=== PATIENT | female | born 1965 | race Caucasian/White ===

== ENCOUNTER 2019-05-16 15:49 | Inpatient (IN) | payer MEDICARE, OTHER ==
[~2019-05-16] VITALS: Ht 157.5 cm; Wt 103.9 kg
[2019-05-16] MEDS ORDERED: RISPERDAL (16:00)
--- NOTE | 2019-05-16 16:10 | NUR ---
PATIENT WAS SEEN BY . SHE ASKED FOR A SODA, I GAVE HER COLA. SHE IS AMBULATORY WITH STEADY GAIT.
[2019-05-16 16:17] LABS: BASOPHILS % (AUTO) 0.7 % (0.0-2.0); EOSINOPHILS # (AUTO) 0.2 K/uL (0.0-0.7); EOSINOPHILS % (AUTO) 3.5 % (0.0-7.0); HEMATOCRIT 36.3 % (31.2-41.9); LYMPHOCYTES # (AUTO) 2.3 K/uL (20.0-40.0); MEAN CORPUSCULAR HEMOGLOBIN 29.6 uug (24.7-32.8); MEAN CORPUSCULAR HGB CONC 33 g/dL (32.3-35.6); MEAN CORPUSCULAR VOLUME 89.2 fL (75.5-95.3); MONOCYTES # (AUTO) 0.4 K/uL (2.0-10.0); MONOCYTES % (AUTO) 5.5 % (0.0-11.0); NEUTROPHILS # (AUTO) 3.9 K/uL (1.8-8.9); NEUTROPHILS % (AUTO) 56.3 % (38.5-71.5); PLATELET COUNT (AUTO) 327 K/uL (179-408); RED BLOOD CELL COUNT(AUTO) 4.07 MIL/uL (3.63-4.92); WHITE BLOOD COUNT (AUTO) 6.8 K/uL (3.8-11.8)
[2019-05-16 16:22] LABS: CARBON DIOXIDE 27 mmol/L (21-32); CHLORIDE 106 mmol/L (98-107); CREATININE 0.6 mg/dL (0.6-1.3); GLUCOSE 131 mg/dL (74-106); POTASSIUM 4.4 mmol/L (3.5-5.1); UREA NITROGEN, BLOOD 7 mg/dL (7-18)
[2019-05-16 16:27] LABS: ALANINE AMINOTRANSFERASE 25 U/L (14-59); ALKALINE PHOSPHATASE 100 U/L (50-136); ASPARTATE AMINOTRANSFERASE 14 U/L (15-37); BILIRUBIN,DIRECT 0.1 mg/dL (0.0-0.2); BILIRUBIN,TOTAL 0.3 mg/dL (0.2-1.0); TOTAL PROTEIN, SERUM 7.2 g/dL (6.4-8.2)
--- NOTE | 2019-05-16 16:27 | NUR ---
URINE SENT TO LAB
[2019-05-16 16:28] LABS: ACETAMINOPHEN < 2.0 ug/mL (10-30)
[2019-05-16 16:33] LABS: *BILIRUBIN,URIN NEGATIVE (NEGATIVE); *BLOOD, URINE NEGATIVE (NEGATIVE); *CLARITY,URINE CLEAR (CLEAR); *COLOR,URINE YELLOW (YELLOW); *KETONES,URINE NEGATIVE (NEGATIVE); *UROBILINOGEN,URINE 0.2 E.U./dl (NORMAL); LEUKOCYTE ESTERASE ,URINE NEGATIVE (NEGATIVE); NITRITE, URINE NEGATIVE (NEGATIVE); UGLUCOSE NEGATIVE (NEGATIVE)
[2019-05-16 16:34] LABS: ETHANOL < 3 MG/DL (0-0)
[2019-05-16 16:46] LABS: *AMPHETAMINE, URINE NEGATIVE (NEGATIVE); *BARBITURATE, URINE NEGATIVE (NEGATIVE); *CANNABINOID, URINE NEGATIVE (NEGATIVE); *COCCAINE, URINE NEGATIVE (NEGATIVE); *OPIATE, URINE NEGATIVE (NEGATIVE); *PHENCYCLIDINE SCREEN,URINE NEGATIVE (NEGATIVE)
--- NOTE | 2019-05-16 17:48 | NUR ---
PATIENT DRANK COFFEE. SHE AMBULATED TO BATHROOM WITH STEADY GAIT. SHE IS AWARE OF PENDING ADMISSION TO HOSPITAL.
[2019-05-16] MEDS ORDERED: CEphaleXIN 500 MG CAPSULE PO ONE (18:15)
[2019-05-16] MEDS ORDERED: MAGNESIUM HYDROXIDE 30 ML LIQUID UDC PO PRN (18:45)
[2019-05-16] MEDS ORDERED: ACETAMINOPHEN 325 MG TABLET PO PRN (18:45)
[2019-05-16] MEDS ORDERED: LORAZEPAM 0.5 MG TABLET PO PRN (18:45)
[2019-05-16] MEDS ORDERED: TEMAZEPAM 7.5 MG CAPSULE PO PRN (18:45)
[2019-05-16] MEDS ORDERED: MAG HYDROX/AL HYDROX/SIMETH 30 ML LIQUID UDC PO PRN (18:45)
[2019-05-16] MEDS ORDERED: BLOOD SUGAR DIAGNOSTIC 1 EACH STRIP VI ONE (18:45)
[2019-05-16 21:12] VITALS: BP 139/73
[2019-05-16] MEDS: DOXYCYCLINE HYCLATE 100 MG TABLET PO SCH (21:19)
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
--- NOTE | 2019-05-17 05:58 | NUR ---
Patient slept 9 hours last night. Up only once to use bathroom. Patient up early and in day room.. No acute distress or issues during the night.
[2019-05-17 07:30] VITALS: BP 108/67
[2019-05-17] MEDS: DOXYCYCLINE HYCLATE 100 MG TABLET PO SCH (08:24)
[2019-05-17] MEDS ORDERED: LORAZEPAM 0.5 MG TABLET PO PRN (09:15)
[2019-05-17] MEDS ORDERED: LORAZEPAM 1 MG TABLET PO PRN (09:30)
[2019-05-17] MEDS: DIVALPROEX SPRINKLE 125 MG CAP.SPRINK PO SCH ×2 (09:49→20:26)
[2019-05-17] MEDS: risperiDONE 1 MG TABLET PO SCH ×2 (09:51→16:12)
--- NOTE | 2019-05-17 10:09 | NUR ---
Family Contact: SW contacted patients son Ronni, ([phone]) to gather more collateral in regards to patient. Patients son expressed patient does not have a POA or conservator at the moment but they are in the process. Patients son Ronni shared more contact information if needed to be reached, (patients brother Wade); ([phone]). Per Ronni, expressed that he is involved in pts care and would like patient to go to [facility] [[facility] ([phone]) where she resided at. SW informed her that pt wishes to be discharged back to her SNF and that pt agreed to the discharge planning.
--- NOTE | 2019-05-17 10:42 | NUR ---
called and left message to patients annie Rudolph , waiting for reply will call back again
--- NOTE | 2019-05-17 11:45 | NUR ---
Initial Discharge Plan: Pt resided at [facility] [address] [place] [address] ([phone]). Per pts sonRonni like pt to return to the facility and if not for SW to arrange pt to another facility. SW anyi work with the pt and the MD regarding appropriate discharge planning. SW will form a safe and proper discharge.
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
--- NOTE | 2019-05-17 14:34 | NUR ---
Social Work Note/Discharge Planning: industrial relations worker was notified by Don martel from [facility], ([phone]) he shared that patient was previously at [facility]. Patient was planned to be discharged to [facility] before she eloped from [facility]. Per Don, shared that patient will be accepted back to [facility].
--- NOTE | 2019-05-17 15:29 | NUR ---
called and spoke with DR. Gracia regarding the consult
[2019-05-17 16:31] VITALS: BP 93/53
[2019-05-17 19:59] VITALS: BP 110/40
[2019-05-17] MEDS: CEphaleXIN 500 MG CAPSULE PO SCH (20:26)
--- NOTE | 2019-05-17 22:05 | NUR ---
Received patient in bed, calm and cooperative, med compliant, no behavioral issue, will remain in a psych setting for further evaluation and treatment.
--- NOTE | 2019-05-18 06:29 | NUR ---
Patient slept for 7 hrs and 15 mins.
[2019-05-18 07:30] VITALS: BP 121/65
[2019-05-18] MEDS: CEphaleXIN 500 MG CAPSULE PO SCH ×2 (09:49→20:17)
[2019-05-18] MEDS: risperiDONE 1 MG TABLET PO SCH (09:49)
[2019-05-18] MEDS: DIVALPROEX SPRINKLE 125 MG CAP.SPRINK PO SCH ×2 (09:49→20:16)
[2019-05-18] MEDS ORDERED: OLANZAPINE 10 MG VIAL IM ONE (11:00)
--- NOTE | 2019-05-18 11:00 | NUR ---
Patient became aggressive with staff and dr. haney stating that she will call 911 on the staff and that she wants to get a gun and shoot all of us. Medication was ordered.
[2019-05-18 16:00] VITALS: BP 102/54
[2019-05-18] MEDS: risperiDONE 2 MG TABLET PO SCH (16:22)
[2019-05-18] MEDS ORDERED: risperiDONE 1 MG TABLET PO SCH (17:00)
[2019-05-18 20:18] VITALS: BP 94/43
--- NOTE | 2019-05-19 06:30 | NUR ---
PT SLEPT 9 H and 30 minutes. PT IN NO ACUTE DISTRESS. PRESCRIBED MEDICATION GIVEN AND PT TOLERATED IT WELL. SAFETY AND COMFORT PROVIDED. WILL CONTINUE TO MONITOR.
[2019-05-19 07:30] VITALS: BP 109/59
[2019-05-19] MEDS: CEphaleXIN 500 MG CAPSULE PO SCH ×2 (08:15→20:19)
[2019-05-19] MEDS: DIVALPROEX SPRINKLE 125 MG CAP.SPRINK PO SCH ×2 (08:15→20:19)
[2019-05-19] MEDS: risperiDONE 2 MG TABLET PO SCH ×2 (08:15→16:03)
--- NOTE | 2019-05-19 13:50 | NUR ---
Social work Note/Family contact: blade worker contacted patients sonRonni ([phone]) and left a voicemail to call back in regards to patients status/discharge plan.
[2019-05-19 16:00] VITALS: BP 101/57
[2019-05-19 21:21] VITALS: BP 118/67
--- NOTE | 2019-05-20 06:30 | NUR ---
Patient slept a total of 7.30 hours. Attended all needs. Ensured safety and comfort. Patient has been compliant with medications. No other untoward events noted. Will endorse accordingly.
[2019-05-20 07:30] VITALS: BP 105/50
[2019-05-20] MEDS: CEphaleXIN 500 MG CAPSULE PO SCH ×2 (08:39→20:14)
[2019-05-20] MEDS: risperiDONE 2 MG TABLET PO SCH ×2 (08:39→16:41)
[2019-05-20] MEDS: DIVALPROEX SPRINKLE 125 MG CAP.SPRINK PO SCH ×2 (08:39→20:14)
[2019-05-20 16:05] VITALS: BP 108/45
[2019-05-20 20:00] VITALS: BP 111/55
[2019-05-21 07:30] VITALS: BP 110/73
[2019-05-21] MEDS: risperiDONE 2 MG TABLET PO SCH ×2 (08:44→16:57)
[2019-05-21] MEDS: CEphaleXIN 500 MG CAPSULE PO SCH ×2 (08:44→20:16)
[2019-05-21] MEDS: DIVALPROEX SPRINKLE 125 MG CAP.SPRINK PO SCH ×2 (08:44→20:15)
[2019-05-21 16:05] VITALS: BP 121/69
[2019-05-21 20:30] VITALS: BP 116/61
[2019-05-22 07:30] VITALS: BP 98/45
[2019-05-22] MEDS: CEphaleXIN 500 MG CAPSULE PO SCH (08:20)
[2019-05-22] MEDS: risperiDONE 2 MG TABLET PO SCH ×2 (08:20→16:33)
[2019-05-22] MEDS: DIVALPROEX SPRINKLE 125 MG CAP.SPRINK PO SCH ×3 (08:20→16:33)
--- NOTE | 2019-05-22 11:44 | NUR ---
Social work Note/Family Contact: ornamental iron worker contacted patients annie Rudolph, ([phone]) and informed patients son discharge plan and treatment plan.
[2019-05-22 20:00] VITALS: BP 108/87
[2019-05-23 07:30] VITALS: BP 104/50
[2019-05-23] MEDS: risperiDONE 2 MG TABLET PO SCH ×2 (08:22→16:04)
[2019-05-23] MEDS: DIVALPROEX SPRINKLE 125 MG CAP.SPRINK PO SCH ×3 (08:22→16:04)
--- NOTE | 2019-05-23 11:57 | NUR ---
Social work note/Facility Contact: dimension mill worker contacted Keerthi from [facility] ([facility]), ([phone]) and shared that patient is welcomed back tomorrow. dimension mill worker sent clinicals to the facility.
[2019-05-23 16:30] VITALS: BP 123/72
[2019-05-23 20:00] VITALS: BP 97/57
--- NOTE | 2019-05-24 06:29 | NUR ---
Patient slept a total of 6.15 hours. Attended all needs. Ensured safety and comfort. No other untoward events noted. Will endorse accordingly.
[2019-05-24] MEDS: risperiDONE 2 MG TABLET PO SCH (08:02)
[2019-05-24] MEDS: DIVALPROEX SPRINKLE 125 MG CAP.SPRINK PO SCH ×2 (08:02→12:49)
[2019-05-24 08:03] VITALS: BP 103/65
--- NOTE | 2019-05-24 08:07 | NUR ---
Social Work Note/FIREARMS REPORT: Foster Care Social Worker completed and submitted a DPJ firearms report for 5250 grave disability certification. A copy of report has been placed in patient chart.
--- NOTE | 2019-05-24 08:17 | NUR ---
Social Work Note/DISCHARGE: Patient will be discharged to detention facility, [address] [address]; ) via Ambulance transportation. Please arrange Ambulance transportation for patient to be picked up at 1:00pm. Employee Health Rn spoke with Keerthi Pelletizer Operator at [facility]; ([phone]), who stated patient will be accepted back at facility today. Per patients annie Rudolph, ([phone]) has been made aware and agreeable with discharge plans. Patient is alert and oriented x2-3 and is unable to plan for self-care. Patient denies any suicidal or homicidal ideations. Patient is aware and agreeable with discharge plans. Patient will continue to follow-up with Psychiatrist and Cup Setter Lockstitch at [address] [address]; ) and will follow up to discuss smoking cessation and address substance abuse dependency. Patient was provided with mental health referrals to [facility] Crisis Line and the National Suicide Prevention Lifeline . Patient was provided with a brief substance abuse intervention and referred to [facility] , [facility] , and [facility] . Patient presents with euthymic and congruent mood. Addendum: 05/24/19 at 1341 by RAYMUNDO CORONA Social Work Note/DISCHARGE: Patient will be discharged to [facility], [address] [address]; ) via Ambulance transportation. Please arrange Ambulance transportation for patient to be picked up at 1:00pm. Employee Health Rn spoke with Pelletizer Operator at [facility]; ([phone]), who stated patient will be accepted back at facility today. Per patients son Ronni, ([phone]) has been made aware and agreeable with discharge plans. Patient is alert and oriented x2-3 and is unable to plan for self-care. Patient denies any suicidal or homicidal ideations. Patient is aware and agreeable with discharge plans. Patient will continue to follow-up with Cup Setter Lockstitch and psychiatrist at [facility] [address] [place] [address]; ) and will follow up to discuss smoking cessation and address substance abuse dependency. Patient was provided with mental health referrals to [facility] and the National Suicide Prevention Lifeline . Patient was provided with a brief substance abuse intervention and referred to [facility] , [facility] , and [facility] . Patient presents with euthymic and congruent mood.
--- NOTE | 2019-05-24 08:43 | NUR ---
Social Work Note/Family Contact: organic lab worker contacted patients annie Rudolph, ([phone]) and left a voicemail that patient will be discharged today at 1PM to [facility].
--- NOTE | 2019-05-24 11:52 | NUR ---
patient will be discharged to [facility] via ambulance, patient's vital sign stable,all personal belonging returned to patient. [facility].
--- NOTE | 2019-05-24 13:46 | NUR ---
nurse was told by social director patient will be transferred to [facility], report given to Whitney ADAME .
== END 2019-05-24 14:00 | DRG 885 ==
LOC: ER 15:53 → GPS 18:05
PROVIDERS: ADMIT Psychiatry & Neurology Psychiatry; ATTEND Nurse Practitioner Acute Care
DX: F20.0 Paranoid schizophrenia (principal); N39.0 Urinary tract infection, site not specified; Z68.41 Body mass index [BMI] 40.0-44.9, adult; E66.01 Morbid (severe) obesity due to excess calories; Z71.3 Dietary counseling and surveillance; Z59.0 Homelessness
CPT/HCPCS: 36415; 80164; 80307; 85025; A4663; G0480; G0480-TC; J2358

== ENCOUNTER 2019-06-09 22:00 | Inpatient (IN) | payer MEDICARE, OTHER ==
[~2019-06-09] VITALS: Ht 157.5 cm; Wt 107.0 kg
[2019-06-09] MEDS ORDERED: MAGN400O6 PO (22:24)
[2019-06-09] MEDS ORDERED: ACET325T53 PO (22:24)
[2019-06-09] MEDS ORDERED: DIVA250T PO (22:24)
[2019-06-09] MEDS ORDERED: RISP2TAB5 PO (22:24)
[2019-06-09] MEDS ORDERED: TEMA7.5C2 PO (22:24)
[2019-06-09] MEDS ORDERED: BISA10SU61 RC (22:24)
[2019-06-09] MEDS ORDERED: NA P133E RC (22:24)
[2019-06-09] MEDS ORDERED: LORA-259 PO (22:24)
--- NOTE | 2019-06-09 22:54 | NUR ---
PT IS ON 5150H +AGGRESSION AND NONCOMPLIANCE PT IS AOX1 WITH EPISODES OF CONFUSION, ABLE TO SPEAK CLEAR AND COMPLETE SENTENCES BROUGHT IN BY RESCUE FR KATHERINE CANALES [facility] PT IS AMBULATORY AND ABLE TO VOID PT COMPLIANT TO BASIC COMMANDS SUCH RECEIPT OF IM MEDS PT NOT IN APPARENT DISTRESS KEPT CALM AND COMFORTABLE
[2019-06-09] MEDS ORDERED: ZIPRASIDONE MESYLATE 20 MG VIAL IM ONE ×2 (23:00→23:16)
[2019-06-09 23:07] LABS: BASOPHILS # (AUTO) 0.1 K/uL (0.0-8.0); BASOPHILS % (AUTO) 0.8 % (0.0-2.0); EOSINOPHILS # (AUTO) 0.2 K/uL (0.0-0.7); EOSINOPHILS % (AUTO) 1.7 % (0.0-7.0); HEMATOCRIT 37.6 % (31.2-41.9); HEMOGLOBIN 12.8 g/dL (10.9-14.3); LYMPHOCYTES # (AUTO) 3.3 K/uL (20.0-40.0); LYMPHOCYTES % (AUTO) 38.3 % (20.5-51.5); MEAN CORPUSCULAR HEMOGLOBIN 29.6 uug (24.7-32.8); MEAN CORPUSCULAR HGB CONC 34 g/dL (32.3-35.6); MONOCYTES # (AUTO) 0.7 K/uL (2.0-10.0); MONOCYTES % (AUTO) 7.9 % (0.0-11.0); NEUTROPHILS # (AUTO) 4.5 K/uL (1.8-8.9); NEUTROPHILS % (AUTO) 51.3 % (38.5-71.5); PLATELET COUNT (AUTO) 342 K/uL (179-408); RED BLOOD CELL COUNT(AUTO) 4.33 MIL/uL (3.63-4.92); WHITE BLOOD COUNT (AUTO) 8.7 K/uL (3.8-11.8)
[2019-06-09 23:14] LABS: CARBON DIOXIDE 31 mmol/L (21-32); CHLORIDE 102 mmol/L (98-107); CREATININE 0.5 mg/dL (0.6-1.3); GLUCOSE 96 mg/dL (74-106); POTASSIUM 4.1 mmol/L (3.5-5.1); UREA NITROGEN, BLOOD 9 mg/dL (7-18)
[2019-06-09 23:20] LABS: ALANINE AMINOTRANSFERASE 17 U/L (14-59); ALKALINE PHOSPHATASE 95 U/L (50-136); ASPARTATE AMINOTRANSFERASE 10 U/L (15-37); BILIRUBIN,DIRECT 0.1 mg/dL (0.0-0.2); BILIRUBIN,TOTAL 0.2 mg/dL (0.2-1.0); CREATINE KINASE, TOTAL 81 U/L (26-192); TOTAL PROTEIN, SERUM 6.9 g/dL (6.4-8.2)
[2019-06-09 23:27] LABS: THYROID STIMULATING HORMONE 3.335 mIU/mL (0.358-3.740)
[2019-06-09 23:32] LABS: *BILIRUBIN,URIN NEGATIVE (NEGATIVE); *BLOOD, URINE NEGATIVE (NEGATIVE); *CLARITY,URINE CLEAR (CLEAR); *KETONES,URINE NEGATIVE (NEGATIVE); *UROBILINOGEN,URINE 0.2 E.U./dl (NORMAL); LEUKOCYTE ESTERASE ,URINE NEGATIVE (NEGATIVE); NITRITE, URINE NEGATIVE (NEGATIVE); UGLUCOSE NEGATIVE (NEGATIVE)
[2019-06-09 23:34] LABS: *COLOR,URINE STRAW (YELLOW)
[2019-06-09 23:35] LABS: ETHANOL < 3 MG/DL (0-0)
[2019-06-09 23:36] LABS: ACETAMINOPHEN < 2.0 ug/mL (10-30)
[2019-06-09 23:57] LABS: *AMPHETAMINE, URINE NEGATIVE (NEGATIVE); *BARBITURATE, URINE NEGATIVE (NEGATIVE); *CANNABINOID, URINE NEGATIVE (NEGATIVE); *COCCAINE, URINE NEGATIVE (NEGATIVE); *OPIATE, URINE NEGATIVE (NEGATIVE); *PHENCYCLIDINE SCREEN,URINE NEGATIVE (NEGATIVE)
--- NOTE | 2019-06-10 01:05 | NUR ---
PT IS ASLEEP BUT EASILY ROUSABLE NAD SIDERAILSX2 UP BED AT LOWEST POSITION
--- NOTE | 2019-06-10 01:29 | NUR ---
CALL FOR BED DONE PT STATES: "I DONT HAVE TO DO IT. IT'S OK, GIVE ME 2MINS" (REFERRING TO EKG) PT IS AWAKE, EYES KEPT SHUT BUT RESPONSIVE
[2019-06-10] MEDS ORDERED: ACETAMINOPHEN 325 MG TABLET PO PRN ×2 (01:30→02:45)
[2019-06-10] MEDS ORDERED: MAGNESIUM HYDROXIDE 30 ML LIQUID UDC PO PRN ×2 (01:30→02:45)
[2019-06-10] MEDS ORDERED: BLOOD SUGAR DIAGNOSTIC 1 EACH STRIP VI ONE ×2 (01:30→02:45)
[2019-06-10] MEDS ORDERED: LORAZEPAM 1 MG TABLET PO PRN (01:30)
[2019-06-10] MEDS ORDERED: MAG HYDROX/AL HYDROX/SIMETH 30 ML LIQUID UDC PO PRN ×2 (01:30→02:45)
[2019-06-10] MEDS ORDERED: TEMAZEPAM 7.5 MG CAPSULE PO PRN (01:30)
--- NOTE | 2019-06-10 01:36 | NUR ---
PT REFUSES TO COMPLY FOR THE THRID TIME WHEN ASKED FOR EKG STATES: "I REFUSE TO COOPERATE, I DO NOT WANT IT, I AM NOT A PART OF YOUR GOVERNMENT, YOU CAN SHOVE THEM UP YOUR ASS" ATTEMPTED TO REDIRECT AND REORIENT PT PT IS STILL ON 5150H ERMD AWARE WILL HOLD EKG FOR NOW
--- NOTE | 2019-06-10 01:49 | NUR ---
PT ABLE TO COMPLY WITH PROGRAM MANAGER ENVIRONMENTAL PLANNING FOR EKG HAND OFF AND SBAR GIVEN TO PATY ADAME PT WILL BE ADMITTED TO U 141B MEDICALLY CLEARED DX PSYCHOSIS/GD/5150 +AGGRESSION AND +NONCOMPLIANCE UNDER DR SANCHEZ/EYAD MANCINI
--- NOTE | 2019-06-10 02:45 | NUR ---
TRANSPORTED TO MHU PT ASLEEP BUT EASILY ROUSED
--- NOTE | 2019-06-10 03:30 | NUR ---
GPS/NSG ADMIT NOTE: Patient arrived to the unit asleep in [facility]. Patient observed to be asleep, able to offer a shower to which she disagreed, skin assessment performed however patient's level of orientation is to name and place. Patient was unable to participate in admission process, he presented disorganized with altered thought process. Although patient displayed poor insight and inability to respond at this time no behavior issues were noted. Admitted under the care of Dr. Stubbs and Dr. Garcia, both notified and aware patient is on a 5150 for grave disability. Patient rights hand book and advisement placed on bedside table. Plan for care initiated, will monitor for safety.
[2019-06-10 06:55] VITALS: BP 100/44
[2019-06-10 07:30] VITALS: BP 103/55
[2019-06-10] MEDS ORDERED: risperiDONE 0.5 MG TABLET PO SCH (14:30)
[2019-06-10] MEDS: BENZTROPINE MESYLATE 0.5 MG TABLET PO SCH ×2 (14:50→16:02)
[2019-06-10] MEDS: DIVALPROEX 250 MG TABLET.DR PO SCH ×2 (14:50→16:02)
[2019-06-10] MEDS: risperiDONE 1 MG TABLET PO SCH ×2 (14:50→20:03)
[2019-06-10 16:00] VITALS: BP 106/54
--- NOTE | 2019-06-10 17:41 | NUR ---
GPS: PATIENT PRESENTED TO BE DISORGANIZED IN HER ROOM, PATIENT TAKES MEDICATION, SEEN AND EXAMINE BY DR. HIGGINS, PATIENT REMAIN ISOLATIVE AND WITHDRAWN IN HER ROOM
[2019-06-10 20:32] VITALS: BP 108/68
--- NOTE | 2019-06-11 05:59 | NUR ---
Received Pt in bed sleeping, arouses easily. Pt irritable and angry upon waking. Pt refused assessments and refused HS PO meds. Pt yelled, "I'm not taking them because you are all intrusive and won't leave me alone. I don't need the meds." Pt remained uncooperative when re-approached again refused. Labile, Pt awoke this morning bright and cheerful. Shower given. VS stable, denied pain.
[2019-06-11] MEDS: BENZTROPINE MESYLATE 0.5 MG TABLET PO SCH ×3 (08:11→16:34)
[2019-06-11] MEDS: risperiDONE 1 MG TABLET PO SCH ×2 (08:11→21:00)
[2019-06-11] MEDS: DIVALPROEX 250 MG TABLET.DR PO SCH ×4 (08:11→16:34)
[2019-06-11] MEDS: TEMAZEPAM 7.5 MG CAPSULE PO PRN (22:23)
[2019-06-12] MEDS: LORAZEPAM 1 MG TABLET PO PRN ×2 (00:30→15:43)
[2019-06-12] MEDS: DIVALPROEX 250 MG TABLET.DR PO SCH ×3 (08:07→16:07)
[2019-06-12] MEDS: BENZTROPINE MESYLATE 0.5 MG TABLET PO SCH ×2 (08:07→16:08)
[2019-06-12] MEDS: risperiDONE 2 MG TABLET PO SCH ×2 (08:07→20:11)
[2019-06-12] MEDS ORDERED: risperiDONE 1 MG TABLET PO SCH (09:00)
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
[2019-06-12 15:29] VITALS: BP 113/68
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
--- NOTE | 2019-06-12 18:25 | NUR ---
PATIENT CALM WATCHING TV IN THE DINING ROOM
[2019-06-12 19:45] VITALS: BP 112/58
[2019-06-13] MEDS: DIVALPROEX 250 MG TABLET.DR PO SCH ×3 (08:19→16:12)
[2019-06-13] MEDS: BENZTROPINE MESYLATE 0.5 MG TABLET PO SCH ×2 (08:19→16:12)
[2019-06-13] MEDS: risperiDONE 2 MG TABLET PO SCH ×2 (08:19→20:05)
[2019-06-13] MEDS: LORAZEPAM 1 MG TABLET PO PRN ×2 (08:21→14:25)
--- NOTE | 2019-06-13 10:32 | NUR ---
Received patient yelling at staff, threatening , posturing and slamming doors. Multiple attempts made to redirect and calm patient down with no effect on the situation. As patients behavior kept escalating, call placed to DR Stubbs and orders received for a Zyprexa 10 mg IM injection. Patient tolerated shot well and seemed to calm down almost right away. Respiratory rate remained WNL, even and unlabored. Patient monitored closely for an hour. No acute distress noted as patient was up in day room eating snack and watching TV. Continuing to monitor patient for any further episodes or escalation of inappropriate behavior. None noted at this time.
--- NOTE | 2019-06-13 15:43 | NUR ---
Social Work Note/Family Contact: steam trap worker contacted patients annie Rudolph ([phone]) and left voicemail in regard to patients treatment plan and discharge plan.
[2019-06-13] MEDS ORDERED: OLANZAPINE 10 MG VIAL IM STA (19:10)
[2019-06-14] MEDS: TEMAZEPAM 7.5 MG CAPSULE PO PRN (01:17)
--- NOTE | 2019-06-14 06:06 | NUR ---
Patient slept on and off for 7 hours last night. Up a couple of times during the night for food. Patient needed sleeping medication also. No issues so far this am with behavior, continuing to monitor closely.
[2019-06-14] MEDS: risperiDONE 2 MG TABLET PO SCH ×3 (08:10→20:13)
[2019-06-14] MEDS: DIVALPROEX 250 MG TABLET.DR PO SCH ×3 (08:10→16:04)
[2019-06-14] MEDS: BENZTROPINE MESYLATE 0.5 MG TABLET PO SCH (08:10)
[2019-06-14] MEDS: LORAZEPAM 1 MG TABLET PO PRN (08:10)
[2019-06-14] MEDS ORDERED: BENZTROPINE MESYLATE 0.5 MG TABLET PO PRN (08:30)
--- NOTE | 2019-06-14 08:43 | NUR ---
Social Work Note/Coordination of Care: abrasive worker contacted Janine ([phone]) and faxed patients progress note and [facility]. Per Janine, she will contact social media intern in regard to see if patient is welcomed to the facility.
--- NOTE | 2019-06-14 13:18 | NUR ---
Social Work Note/Family Contact: automotive worker contacted patients annie Rudolph ([phone]) and reported patients treatment plan and discharge plan.
--- NOTE | 2019-06-14 13:19 | NUR ---
Social Work Note/PC Hearing Notification: social worker masters contacted patients son Ronni ([phone]) and notified patients probable cause of hearing today.
[2019-06-14 16:00] VITALS: BP 106/62
[2019-06-14 20:19] VITALS: BP 118/69
[2019-06-15] MEDS: risperiDONE 2 MG TABLET PO SCH ×2 (08:31→20:16)
[2019-06-15] MEDS: DIVALPROEX 250 MG TABLET.DR PO SCH ×4 (08:31→20:15)
--- NOTE | 2019-06-15 13:12 | NUR ---
Pt assessed, AOx3, compliant with medications and able to make needs known. Pt denies SI, AH/VH. When asked about what events lead up to her arrival here, Pt became irritable describing other's aggressive behavior towards her, liable mood, flight of ideas, disorganized thought process. Denies feelings of HI/SI/AH/VH, goal oriented on placement. No combative behavior noted. Pt ambulates steadily. All comfort measures in place. Will continue to monitor for safety.
--- NOTE | 2019-06-15 15:35 | NUR ---
Social Work Note/Coordination of Care: Janine From [facility] ([phone]) visited patient to do a evaluation. Per Janine, she expressed that patient is welcomed upon discharge.
[2019-06-15 20:00] VITALS: BP 121/58
[2019-06-16 08:00] VITALS: BP 117/64
[2019-06-16] MEDS: risperiDONE 2 MG TABLET PO SCH ×3 (08:42→20:04)
[2019-06-16] MEDS: DIVALPROEX 250 MG TABLET.DR PO SCH ×5 (08:42→20:04)
[2019-06-16 16:00] VITALS: BP 124/76
[2019-06-16 20:00] VITALS: BP 111/60
[2019-06-17] MEDS: LORAZEPAM 1 MG TABLET PO PRN (05:26)
--- NOTE | 2019-06-17 05:39 | NUR ---
Patient slept 8.15 hours last night. Woke up feeling anxious this am, Ativan given and patient back to bed. No acute distress noted, continuing to monitor for safety.
[2019-06-17 07:30] VITALS: BP 129/66
[2019-06-17] MEDS: risperiDONE 2 MG TABLET PO SCH ×2 (08:00→20:01)
[2019-06-17] MEDS: DIVALPROEX 250 MG TABLET.DR PO SCH ×4 (08:00→20:01)
[2019-06-17 20:00] VITALS: BP 116/61
[2019-06-18] MEDS: DIVALPROEX 250 MG TABLET.DR PO SCH ×4 (08:52→20:20)
[2019-06-18] MEDS: risperiDONE 2 MG TABLET PO SCH ×2 (08:52→20:20)
[2019-06-18 16:00] VITALS: BP 118/50
[2019-06-18 19:45] VITALS: BP 131/52
[2019-06-18] MEDS: LORAZEPAM 1 MG TABLET PO PRN (21:21)
[2019-06-19 08:45] VITALS: BP 105/49
[2019-06-19] MEDS: DIVALPROEX 250 MG TABLET.DR PO SCH ×6 (08:53→20:39)
[2019-06-19] MEDS: risperiDONE 2 MG TABLET PO SCH ×3 (08:54→20:39)
--- NOTE | 2019-06-19 10:50 | NUR ---
Social Work Note/Discharge Update: oven worker faxed Janine admin coordinator from [place] (P:[phone]) (F:[phone]) patients progress notes and [facility] psychiatric notes.
--- NOTE | 2019-06-19 10:55 | NUR ---
Social Work Note/Family Contact: social contact worker contacted patients annie Rudolph ([phone]) and left a voicemail in regard to patients treatment plan and discharge plan.
--- NOTE | 2019-06-19 14:46 | NUR ---
Social Work Note/Individual Therapy: utility worker woolen mill met with patient and she became verbally abusive. Patient is irritable and paranoid.
--- NOTE | 2019-06-19 15:55 | NUR ---
transfer care to new Rn report given
[2019-06-19 20:23] VITALS: BP 113/59
[2019-06-20 07:30] VITALS: BP 110/63
[2019-06-20] MEDS: risperiDONE 2 MG TABLET PO SCH ×2 (08:19→21:08)
[2019-06-20] MEDS: DIVALPROEX 250 MG TABLET.DR PO SCH (08:19)
[2019-06-20] MEDS ORDERED: VALPROIC ACID 250 MG/5 ML LIQUID UDC PO SCH (09:00)
[2019-06-20 10:43] LABS: *BILIRUBIN,URIN NEGATIVE (NEGATIVE); *BLOOD, URINE NEGATIVE (NEGATIVE); *CLARITY,URINE CLEAR (CLEAR); *COLOR,URINE YELLOW (YELLOW); *KETONES,URINE TRACE (NEGATIVE); *UROBILINOGEN,URINE 0.2 E.U./dl (NORMAL); LEUKOCYTE ESTERASE ,URINE NEGATIVE (NEGATIVE); NITRITE, URINE NEGATIVE (NEGATIVE); UGLUCOSE NEGATIVE (NEGATIVE)
[2019-06-20 10:49] LABS: SQUAMOUS EPITHELIAL CELL,UR FEW /HPF (NONE SEEN)
[2019-06-20 10:50] LABS: BACTERIA,URINE FEW /HPF (NONE SEEN); RBC,URINE 0-3 /HPF (0-3); WBC,URINE 0-3 /HPF (0-3)
[2019-06-20] MEDS: VALPROIC ACID 250 MG/5 ML LIQUID UDC PO SCH ×3 (12:01→21:08)
[2019-06-20 16:04] VITALS: BP 98/65
--- NOTE | 2019-06-20 18:10 | NUR ---
GPS: received patient AOx1, patient calm cooperative, compliant with medication, patient gets easily irritable however able to direct seen by Dr. Stubbs , no distress at this time , will continue monitor
[2019-06-20 20:00] VITALS: BP 128/53
[2019-06-21 07:30] VITALS: BP 104/59
[2019-06-21] MEDS: VALPROIC ACID 250 MG/5 ML LIQUID UDC PO SCH ×4 (09:48→20:02)
[2019-06-21] MEDS: risperiDONE 2 MG TABLET PO SCH ×2 (09:49→20:02)
[2019-06-21 16:00] VITALS: BP 104/64
[2019-06-21 20:22] VITALS: BP 128/74
[2019-06-21] MEDS: TEMAZEPAM 7.5 MG CAPSULE PO PRN (23:15)
--- NOTE | 2019-06-22 05:53 | NUR ---
Patient slept 6.45 hours. Plan for patient to be dc,d today. No issues last night.
--- NOTE | 2019-06-22 07:57 | NUR ---
Social Work Note/Discharge Note: Patient will be discharged to a locked [facility] facility to [facility] [address] [place] [address] ; ([phone]) via Ambulance transportation at 12PM. Electronics Assembler And Tester spoke with Janine, Cash Management Associate [facility]; ([phone]), who stated patient will be accepted at facility today. Patient is alert and oriented x2-3, and is not able to plan for self-care at this time, but is willing to accept care provided for her at the facility. Patient denies any suicidal or homicidal ideations. Patient is aware and agreeable with discharge plans. Patients son Ronni, ([phone]) is aware and agreeable with discharge plans. Patient will continue to follow-up with her Psychiatrist Dr. Stubbs and Cover Maker Dr. Caba at [facility] [address] [place] [address] ; ([phone]). Patient will follow-up at the center. Patient presents with euthymic mood and congruent affect.
[2019-06-22 07:58] VITALS: BP 107/63
--- NOTE | 2019-06-22 07:59 | NUR ---
Social Work Note/Firearms Report: Teacher Home Therapy completed and submitted a [employer] firearms report for 5250 grave disability certification. A copy of report has been placed in patient chart.
--- NOTE | 2019-06-22 08:03 | NUR ---
Social Work Note/Family Contact: curb worker contacted patients annie Rudolph ([phone]) and left a voicemail in regard to patients treatment plan and discharge plan.
[2019-06-22] MEDS: VALPROIC ACID 250 MG/5 ML LIQUID UDC PO SCH ×2 (08:55→12:12)
[2019-06-22] MEDS: risperiDONE 2 MG TABLET PO SCH (08:55)
--- NOTE | 2019-06-22 10:58 | NUR ---
Gps/Equipment Maint Tech- Had been compliant with routine am meds. had been redirectable, ate breakfast in the dinning room, Discharged planning in progress , patient was well informed.
--- NOTE | 2019-06-22 13:02 | NUR ---
Gps/Attendant Coin Operated Laundry- [facility] report was given to DEEP Lopez.was also informed of cook pickled meat time @ 1330.Patient was well informed of her discharge plan.
--- NOTE | 2019-06-22 14:07 | NUR ---
Gps/Billing Specialist- Discharged via ambulance, in good spirit, No new complaints noted , all belongings given back to patient.
== END 2019-06-22 14:13 | DRG 885 ==
LOC: ER 22:02 → GPS 06-10 02:06
PROVIDERS: ADMIT Psychiatry & Neurology Psychiatry; ATTEND Internal Medicine
DX: F20.0 Paranoid schizophrenia (principal); Z68.41 Body mass index [BMI] 40.0-44.9, adult; E66.01 Morbid (severe) obesity due to excess calories
CPT/HCPCS: 36415; 80164; 80307; 84443; 85025; 93005; A4663; G0480; G0480-TC; J2358; J3486; J3490

== ENCOUNTER 2020-11-23 19:02 | Inpatient (IN) | payer MEDICARE, OTHER ==
[~2020-11-23] VITALS: Ht 157.5 cm; Wt 108.9 kg
[~2020-11-23 19:02] MED LIST: ACET325T53 PO; BISA10SU61 RC; MAGN400O6 PO; NA P133E RC
[2020-11-23] MEDS ORDERED: LITH300C2 PO (19:32)
[2020-11-23] MEDS ORDERED: OLAN10TA3 PO (19:32)
[2020-11-23] MEDS ORDERED: GABA-532 PO (19:32)
[2020-11-23 19:54] LABS: BASOPHILS # (AUTO) 0.1 K/uL (0.0-8.0); BASOPHILS % (AUTO) 0.8 % (0.0-2.0); EOSINOPHILS # (AUTO) 0.3 K/uL (0.0-0.7); EOSINOPHILS % (AUTO) 3.1 % (0.0-7.0); HEMOGLOBIN 11.7 g/dL (10.9-14.3); LYMPHOCYTES # (AUTO) 3.6 K/uL (20.0-40.0); LYMPHOCYTES % (AUTO) 33.6 % (20.5-51.5); MEAN CORPUSCULAR HEMOGLOBIN 28.8 uug (24.7-32.8); MEAN CORPUSCULAR HGB CONC 33 g/dL (32.3-35.6); MEAN CORPUSCULAR VOLUME 88.6 fL (75.5-95.3); MONOCYTES # (AUTO) 0.6 K/uL (2.0-10.0); MONOCYTES % (AUTO) 5.5 % (0.0-11.0); PLATELET COUNT (AUTO) 389 K/uL (179-408); RED BLOOD CELL COUNT(AUTO) 4.06 MIL/uL (3.63-4.92); WHITE BLOOD COUNT (AUTO) 10.6 K/uL (3.8-11.8)
[2020-11-23 20:01] LABS: CARBON DIOXIDE 27 mmol/L (21-32); CHLORIDE 106 mmol/L (98-107); CREATININE 0.7 mg/dL (0.6-1.3); ETHANOL < 3 MG/DL (0-0); GLUCOSE 127 mg/dL (74-106); POTASSIUM 4.1 mmol/L (3.5-5.1); UREA NITROGEN, BLOOD 19 mg/dL (7-18)
[2020-11-23 20:08] LABS: ALANINE AMINOTRANSFERASE 18 U/L (14-59); ALKALINE PHOSPHATASE 96 U/L (50-136); ASPARTATE AMINOTRANSFERASE 11 U/L (15-37); BILIRUBIN,DIRECT 0.1 mg/dL (0.0-0.2); BILIRUBIN,TOTAL 0.1 mg/dL (0.2-1.0); TOTAL PROTEIN, SERUM 6.4 g/dL (6.4-8.2)
[2020-11-23 20:12] LABS: ACETAMINOPHEN < 2.0 ug/mL (10-30)
[2020-11-23 20:14] LABS: THYROID STIMULATING HORMONE 3.066 mIU/mL (0.358-3.740)
[2020-11-23 20:18] LABS: *BILIRUBIN,URIN NEGATIVE (NEGATIVE); *BLOOD, URINE NEGATIVE (NEGATIVE); *CLARITY,URINE CLEAR (CLEAR); *COLOR,URINE YELLOW (YELLOW); *KETONES,URINE NEGATIVE (NEGATIVE); *UROBILINOGEN,URINE 0.2 E.U./dl (NORMAL); LEUKOCYTE ESTERASE ,URINE NEGATIVE (NEGATIVE); NITRITE, URINE NEGATIVE (NEGATIVE); PH,URINE 6.5 (5.0-8.0); UGLUCOSE NEGATIVE (NEGATIVE)
[2020-11-23] MEDS ORDERED: RISP4TAB70 PO (20:23)
[2020-11-23 20:29] LABS: *AMPHETAMINE, URINE NEGATIVE (NEGATIVE); *CANNABINOID, URINE NEGATIVE (NEGATIVE); *COCCAINE, URINE NEGATIVE (NEGATIVE); *OPIATE, URINE NEGATIVE (NEGATIVE); *PHENCYCLIDINE SCREEN,URINE NEGATIVE (NEGATIVE)
--- NOTE | 2020-11-23 20:30 | NUR ---
PATIENT ABLE TO AMBULATED TO RESTROOM WITH STEADY GAIT. PATIENT CALM AND COOPERATIVE AT THIS TIME.
--- NOTE | 2020-11-23 21:15 | NUR ---
TRANSFERED TO MHU VIA GURNY WITH NO DISTRESS NOTED.
[2020-11-23] MEDS ORDERED: MAGNESIUM HYDROXIDE 30 ML LIQUID UDC PO PRN (21:30)
[2020-11-23] MEDS ORDERED: MAG HYDROX/AL HYDROX/SIMETH 30 ML LIQUID UDC PO PRN (21:30)
[2020-11-23] MEDS ORDERED: ACETAMINOPHEN 325 MG TABLET PO PRN (21:30)
[2020-11-23] MEDS ORDERED: BLOOD SUGAR DIAGNOSTIC 1 EACH STRIP VI ONE (21:30)
[2020-11-23 21:34] VITALS: BP 110/68
[2020-11-23] MEDS: TEMAZEPAM 7.5 MG CAPSULE PO PRN ×2 (21:51→22:56)
--- NOTE | 2020-11-23 22:30 | NUR ---
Admission Note: 55 y.o. female brought to MHU from ER via gurney accompanied by ER staff. Pt admitted on a 5150 for DTO under the care of Dr Calle and Dr Workman with a dx of Psychosis. According to the 5150, Pt was at [facility] in [place] and was psychotic, cursing at, and threatening staff. She was talking about the governors brother is a in store representative and the lesbians are the enemies. Upon face to face evaluation, Pt is A+Ox2 with poor insight into reason for admission. Affect is elevated, mood is labile and angry. Pt presents with altered, disorganized thought process. Exhibits pressured, rambling speech and paranoid ideations. Pt was angry and agitated on approach, and uncooperative with the assessment, but was tentatively able to contract for safety. Pt refused to answer most questions and became more and angrier as questions were asked, and yelled at another staff member, "You're the reason they are killing all the Jews!", Pt was redirected and reoriented to reality. Pt is delusional and made multiple non-sensical statements, Im here because the [place] killed my family and Im the only one left on earth and The government has infiltrated my veins and created a network so they can follow me. Pt is impulsive, unpredictable, easily irritated, and preoccupied. Pt was uncooperative with admission process and refused to sign paperwork, and unwilling to participate in admission process. Restoril 7.5mg administered for restlessness and insomnia with good effect. Pt initially refused body check, but was more cooperative after a snack was given. Skin noted to be intact with large vertical surgical scar noted to the mid abdomen. Possible hernia noted to (L) lower abdomen, Pt refused photos. Pt is a poor historian and unable to state what the surgical scar is from. Pt has a known medical h/o schizophrenia, obesity, and HTN. Allergies to Haldol, Ibuprofen, and morphine. Dr Calle and Dr Workman notified of admission, orders received, meds reconciled. Pt did not give permission to notify anyone, and states all of my family is . Will refer to Head Of Global Strategic Partnerships for follow up for collateral information. Belongings inventoried and placed in unit locker, medications sent to pharmacy. Pt educated regarding unit rules and expectations. Patient rights explained, Advisement and patient rights handbook given, Pt will need reinforcement due to agitation. Pt oriented to the unit, the phones, her room, and the bathroom. VS stable, Pt denied pain. Q 15 minute safety checks initiated.
[2020-11-24] MEDS ORDERED: OLANZAPINE 10 MG VIAL IM ONE (11:15)
--- NOTE | 2020-11-24 11:15 | NUR ---
GPS: Nursing Notes: Chemical Restraint: Patient is awake and shouting to psychiatrist, threatening her, interfering with the care of her roommate, shouting "LEAVE HER ALONE... GET AWAY FROM HER...", violating the psychiatrist's personal space, overly disruptive by shouting, screaming to staff and peers, redirected by unable to follow directions, poor anger management, not allowing for the psychiatrist to talk the patient, paranoid and restless behavior, Dr. Calle ordered: Zyprexa 10mg IM stat, for severe agitated behavior, R=18, medication IM given at this time, continue to monitor for safety, continue with treatment plan.
--- NOTE | 2020-11-24 11:45 | NUR ---
GPS: Nursing Notes: Reassessment of Chemical Restraint: Patient is awake and responding to her name, isolative in her room, gets easily irritable when redirected, patient is withdrawn in her room, medications IM was effective, continue to monitor for safety, R=18, continue with treatment plan.
[2020-11-24 15:09] VITALS: BP 96/49
[2020-11-24] MEDS: OLANZAPINE 5 MG TABLET PO SCH ×2 (17:45→22:00)
[2020-11-24] MEDS: LITHIUM CARBONATE 300 MG CAPSULE PO SCH (17:46)
--- NOTE | 2020-11-24 22:00 | NUR ---
Pt agitated and elevated at the beginning of the shift. Pt offered prn Ativan, which she declined. Verbal redirection given and Pt calmed, then went to sleep. Pt refused scheduled Zyprexa. Education regarding risks and benefits of medications, Pt not receptive.
[2020-11-24] MEDS: LORAZEPAM 1 MG TABLET PO PRN (22:31)
--- NOTE | 2020-11-25 06:36 | NUR ---
Pt is delusional and psychotic. States she is "" and refuses to take medications because "It's bad" for her baby. Pt later stated that her stomach hurt "Because you force fed me chocolate pudding and not vanilla. That is going to kill me." Pt actively responds to internal stimuli. appears preoccupied and hypervigilant, and presents with altered and disorganized thought process. Pt is selectively cooperative with care and non compliant with meds this shift. Refused VS, denied pain.
[2020-11-25 07:30] VITALS: BP 119/65
[2020-11-25] MEDS: OLANZAPINE 5 MG TABLET PO SCH ×2 (08:32→17:09)
[2020-11-25] MEDS: LITHIUM CARBONATE 300 MG CAPSULE PO SCH ×3 (08:32→17:09)
[2020-11-25 20:15] VITALS: BP 116/62
[2020-11-25] MEDS: OLANZAPINE 2.5 MG TABLET PO SCH (20:26)
[2020-11-26 07:30] VITALS: BP 110/46
[2020-11-26] MEDS: LITHIUM CARBONATE 300 MG CAPSULE PO SCH ×3 (08:13→17:13)
[2020-11-26] MEDS: OLANZAPINE 5 MG TABLET PO SCH ×2 (08:13→17:13)
--- NOTE | 2020-11-26 09:13 | NUR ---
Firearms Report: Architectural Modeler completed and submitted a [employer] firearms report for 5150 grave disability certification. A copy of report has been placed in patient chart.
--- NOTE | 2020-11-26 09:54 | NUR ---
Initial Discharge Plan: Patient will need a nursing facility. This SW contacted patient's son Ronni ([phone]) to discuss treatment and discharge plan, however, was unavailable at this time. This SW will work with the MD, treatment team, and family to help coordinate proper discharge.
--- NOTE | 2020-11-26 09:55 | NUR ---
Family Contact: This SW contacted patient's son Ronni ([phone]) to discuss treatment and discharge plan, however, was unavailable at this time.
--- NOTE | 2020-11-26 10:10 | NUR ---
SW Facility Contact: SW received a call from Dancia WEST ([phone]) from [address] [place] [address] [phone]) who stated that they will accept the patient back to their facility upon discharge.
--- NOTE | 2020-11-26 11:33 | NUR ---
SW Substance Abuse Intervention: Patient was provided with a brief substance abuse intervention and referred to [facility] ([phone]), [facility] ([phone]), and [facility] ([phone]) for smoking.
--- NOTE | 2020-11-26 13:49 | NUR ---
RAYMUNDO Individual Therapy: composition siding worker met with patient for brief counseling to help address patients presenting problem paranoid thought content. Patient appeared very paranoid and delusional. Patient appeared manic and labile. Patient stating that she was forced to be brought to the hospital. Patient appeared hyperverbal and angry. Patient unable to have a proper conversation at this time due to her paranoia. SW unable to conduct therapy at this time.
--- NOTE | 2020-11-26 14:57 | NUR ---
Treatment Plan: Patient refused to sign her treatment plan due to being agitated and paranoid.
[2020-11-26 16:03] VITALS: BP 115/65
[2020-11-26] MEDS: OLANZAPINE 2.5 MG TABLET PO SCH (20:03)
[2020-11-26 20:07] VITALS: BP 106/51
[2020-11-27 07:30] VITALS: BP 115/67
--- NOTE | 2020-11-27 07:30 | NUR ---
Received report from RICO Robles. All questions, comments, and concerns were addressed. Received patient resting quietly and comfortably in her assigned bed. Bed is in low and locked position.
[2020-11-27] MEDS: LITHIUM CARBONATE 300 MG CAPSULE PO SCH ×3 (08:36→16:05)
[2020-11-27] MEDS: OLANZAPINE 5 MG TABLET PO SCH ×2 (08:36→16:05)
--- NOTE | 2020-11-27 11:39 | NUR ---
SW Facility Contact: SW received a call from Danica WEST ([phone]) from [address] [place] [address] ([phone]) who stated that patient would have to return back upon discharge because she was mandated by the court to complete her hours.
[2020-11-27 16:04] VITALS: BP 97/37
[2020-11-27 20:06] VITALS: BP 97/50
[2020-11-27] MEDS: OLANZAPINE 2.5 MG TABLET PO SCH (20:07)
[2020-11-28 07:30] VITALS: BP 97/45
[2020-11-28] MEDS: LITHIUM CARBONATE 300 MG CAPSULE PO SCH ×3 (08:39→16:20)
[2020-11-28] MEDS: OLANZAPINE 5 MG TABLET PO SCH ×2 (08:39→16:20)
--- NOTE | 2020-11-28 11:13 | NUR ---
RAYMUNDO Facility Contact: RAYMUNDO contacted Danica WEST ([phone]) from [facility] and stated that pt is ready for discharge next week. She stated pt is welcomed back. Addendum: 11/28/20 at 1117 by RAYMUNDO CORONA Danica confirmed address [facility] [address] [facility] [address].
--- NOTE | 2020-11-28 12:44 | NUR ---
Gps/Film Tests Checker- Had been quiet, guarded, compliant with her routine am meds., encouraged verbalizations of her feelings needs. Refused to attend her group therapy.
[2020-11-28 16:00] VITALS: BP_SYST 114; BP_SYST 129; BP_DIAS 52; BP_DIAS 77
--- NOTE | 2020-11-28 19:30 | NUR ---
PATIENT IN HER ROOM ASLEEP BUT AROUSABLE, PATIENT HAS NO COMPLAIN OF PAIN, COOPERATIVE WITH CARE AND MEDICATIONS. PATIENT CALM CONT TO MONITOR.
[2020-11-28 20:16] VITALS: BP 112/51
[2020-11-28] MEDS: OLANZAPINE 2.5 MG TABLET PO SCH (20:51)
--- NOTE | 2020-11-29 05:25 | NUR ---
PATIENT SLEPT WELL, CALM AND COOPERATIVE WITH CARE AND MEDICATIONS.
[2020-11-29] MEDS: LITHIUM CARBONATE 300 MG CAPSULE PO SCH ×3 (08:40→16:51)
[2020-11-29] MEDS: OLANZAPINE 5 MG TABLET PO SCH ×2 (08:40→16:51)
--- NOTE | 2020-11-29 11:21 | NUR ---
RAYMUNDO Facility Contact: RAYMUNDO contacted Danica WEST ([phone]) from [facility] and left a voicemail that discharge will be post-poned.
--- NOTE | 2020-11-29 14:30 | NUR ---
Gps/Clerical Administrator- Stayed in her room most of the time, comes out when needed simple needs. Encouraged going to activity room during the day . Encouraged verbalizations of her feelings , stares and does not respond at times.
--- NOTE | 2020-11-29 15:15 | NUR ---
Court Hearing: Patient's court hearing for 5250 was today and it was upheld for danger to others.
[2020-11-29 17:44] VITALS: BP 104/54
[2020-11-29 20:12] VITALS: BP 94/69
[2020-11-29] MEDS: OLANZAPINE 2.5 MG TABLET PO SCH (22:17)
--- NOTE | 2020-11-30 05:24 | NUR ---
PATIENT STAYED IN HER ROOM, AMBULATE TO BATHROOM. PATIENT HAS EPISODE OF DELUSION OF THE HOSPITAL IS SELL HER INSURANCE TO OTHER PEOPLE. PATIENT CALM AND COOPERATIVE WITH MEDICATION AND CARE AT THIS TIME. CONT TO MONITOR.
[2020-11-30 08:10] VITALS: BP 106/58
[2020-11-30] MEDS: OLANZAPINE 5 MG TABLET PO SCH ×2 (08:16→16:30)
[2020-11-30] MEDS: LITHIUM CARBONATE 300 MG CAPSULE PO SCH ×3 (08:16→16:30)
[2020-11-30 17:01] VITALS: BP 114/59
[2020-11-30] MEDS: OLANZAPINE 2.5 MG TABLET PO SCH (19:55)
[2020-11-30] MEDS: LORAZEPAM 1 MG TABLET PO PRN (19:55)
[2020-11-30 21:47] VITALS: BP 106/55
[2020-12-01] MEDS: LORAZEPAM 1 MG TABLET PO PRN ×2 (03:13→20:38)
--- NOTE | 2020-12-01 06:33 | NUR ---
Patient slept 6.45 hours last night. Up a couple times due to the roommate being loud and inconsiderate. Patient appeared to be anxious and angry on and off , but easily redirectable. Patient denies SI and HI but is responding to internal stimuli. Monitoring for behavior escalation and safety.
[2020-12-01 07:30] VITALS: BP 130/66
[2020-12-01] MEDS: OLANZAPINE 5 MG TABLET PO SCH ×2 (08:58→16:19)
[2020-12-01] MEDS: LITHIUM CARBONATE 300 MG CAPSULE PO SCH ×3 (08:58→16:19)
[2020-12-01 14:05] LABS: BASOPHILS # (AUTO) 0.1 K/uL (0.0-8.0); EOSINOPHILS # (AUTO) 0.3 K/uL (0.0-0.7); EOSINOPHILS % (AUTO) 3.1 % (0.0-7.0); HEMOGLOBIN 12.5 g/dL (10.9-14.3); LYMPHOCYTES # (AUTO) 2.7 K/uL (20.0-40.0); LYMPHOCYTES % (AUTO) 33.4 % (20.5-51.5); MEAN CORPUSCULAR HGB CONC 33 g/dL (32.3-35.6); MEAN CORPUSCULAR VOLUME 87.8 fL (75.5-95.3); MONOCYTES # (AUTO) 0.4 K/uL (2.0-10.0); MONOCYTES % (AUTO) 5.6 % (0.0-11.0); NEUTROPHILS # (AUTO) 4.5 K/uL (1.8-8.9); NEUTROPHILS % (AUTO) 56.9 % (38.5-71.5); PLATELET COUNT (AUTO) 346 K/uL (179-408); RED BLOOD CELL COUNT(AUTO) 4.33 MIL/uL (3.63-4.92)
[2020-12-01 14:15] LABS: ALANINE AMINOTRANSFERASE 20 U/L (14-59); ALKALINE PHOSPHATASE 100 U/L (50-136); ASPARTATE AMINOTRANSFERASE 11 U/L (15-37); BILIRUBIN,TOTAL 0.2 mg/dL (0.2-1.0); CARBON DIOXIDE 29 mmol/L (21-32); CHLORIDE 104 mmol/L (98-107); CREATININE 0.8 mg/dL (0.6-1.3); GLUCOSE 137 mg/dL (74-106); POTASSIUM 4.4 mmol/L (3.5-5.1); TOTAL PROTEIN, SERUM 6.8 g/dL (6.4-8.2); UREA NITROGEN, BLOOD 13 mg/dL (7-18)
[2020-12-01 14:27] LABS: VALPROIC ACID < 3 ug/mL (50-100)
[2020-12-01 16:00] VITALS: BP 120/64
[2020-12-01 19:56] VITALS: BP 128/66
[2020-12-01] MEDS: OLANZAPINE 2.5 MG TABLET PO SCH (20:39)
--- NOTE | 2020-12-02 06:04 | NUR ---
Patient slept 7.00 hours last night. Still noted to be responding to internal stimuli, but denies feeling of aggression and has not shown any behavior escalation during the shift.
[2020-12-02 07:30] VITALS: BP 109/51
[2020-12-02] MEDS: OLANZAPINE 5 MG TABLET PO SCH ×3 (09:19→20:05)
[2020-12-02] MEDS: LITHIUM CARBONATE 300 MG CAPSULE PO SCH ×3 (09:19→16:47)
[2020-12-02 15:15] VITALS: BP 101/45
--- NOTE | 2020-12-02 15:16 | NUR ---
SW Individual Therapy: beam worker met with patient for brief counseling to help address patients presenting problem paranoid thought content. Patient presented very paranoid and delusional. Patient stating that "government is after her and she did nothing wrong". Patient is unpredictable and stated "you are against me as well". Patient left and did not want to have a conversation with this SW.
--- NOTE | 2020-12-02 17:10 | NUR ---
UP AND ABOUT COMPLIANT WITH MEDICATIONS AND CARE ENCOURAGED TO PARTICIPATE IN ACTIVITIES AND INTERACT WITH OTHER PATIENTS MUCH ABLE AND SHE EXPRESSED UNDERSTANDING.
[2020-12-02 20:15] VITALS: BP 111/61
[2020-12-02] MEDS ORDERED: OLANZAPINE 2.5 MG TABLET PO SCH (21:00)
--- NOTE | 2020-12-03 06:29 | NUR ---
GPS: Pt.slept for 7.30 last night. No increased agitation noted. Re-directed prn. Safe environment provided. Will continue to monitor.
--- NOTE | 2020-12-03 07:12 | NUR ---
GPS: Pt.refused scheduled blood drawing today ([place] [facility]) despite explanation of importance. Risks vs benefits explained x3 although unsuccessful.
[2020-12-03 07:30] VITALS: BP 97/58
[2020-12-03] MEDS: OLANZAPINE 5 MG TABLET PO SCH ×3 (09:34→20:19)
[2020-12-03] MEDS: LITHIUM CARBONATE 300 MG CAPSULE PO SCH ×3 (09:34→16:46)
[2020-12-03 15:13] VITALS: BP 96/54
[2020-12-03 20:48] VITALS: BP 99/56
[2020-12-04 07:30] VITALS: BP 100/59
--- NOTE | 2020-12-04 07:30 | NUR ---
Received report from RICO Robles. All questions, comments, and concerns were addressed. Received patient awake and resting quietly in her assigned bed, bed is in low and locked position. Patient is alert and oriented to name and place.
[2020-12-04] MEDS: LITHIUM CARBONATE 300 MG CAPSULE PO SCH ×2 (08:06→12:17)
[2020-12-04] MEDS: OLANZAPINE 5 MG TABLET PO SCH ×3 (08:06→20:04)
--- NOTE | 2020-12-04 10:28 | NUR ---
RAYMUNDO Facility Contact: RAYMUNDO contacted Danica WEST ([phone]) and stated patient will be discharged tomorrow 12/05. She was agreeable with this.
--- NOTE | 2020-12-04 15:36 | NUR ---
Patient is calm, cooperative, and redirectable. She is isolative and withdrawn to her assigned room. Patient is adherent with medication, no adverse reaction noted. Patient denies SI/HI, denies AH/VH but she appears internally preoccupied and is continually laughing and smiling during all interactions with this advertising writer. Patient provided with education about impulse control and how to communicate needs to staff appropriately. Patient is able to ambulate and provide for self care independently.
[2020-12-04 16:06] VITALS: BP 97/62
--- NOTE | 2020-12-04 16:15 | NUR ---
SW Coordination of Care: This SW received a call from Danica business case analyst from [facility] ([phone]) who stated that she will give this assembly instructions writer an answer tomorrow. She stated that she is working with [facility] program and they would have to approve pt.
[2020-12-04] MEDS ORDERED: LITHIUM CARBONATE 300 MG CAPSULE PO SCH (17:00)
[2020-12-04] MEDS ORDERED: LITHIUM CARBONATE 150 MG CAPSULE PO SCH (17:00)
[2020-12-04 20:18] VITALS: BP 100/60
--- NOTE | 2020-12-05 06:30 | NUR ---
GPS: Pt.slept 7.45 last night. Awake,pleasant and thankful for the care she received from this expert medical writer. Health teachings given regarding importance of taking her meds. ordered and verbalized understanding and compliance.
[2020-12-05 07:30] VITALS: BP 116/55
--- NOTE | 2020-12-05 08:00 | NUR ---
SW Coordination of Care: This SW received a call from Danica caser shoe parts from [facility] ([phone]) who stated pt can return back today.
--- NOTE | 2020-12-05 08:04 | NUR ---
RAYMUNDO Discharge Note: Patient will be discharged to [facility] [address] [place] [address]. Patient will be provided with taxi transportation at 1PM. RAYMUNDO spoke with Danica WEST ([phone]) who stated that patient is welcomed back and would have to come back to their housing program to complete her hours due to being mandated by the court. This SW contacted patients son Ronni ([phone]) and left a voicemail. Patient is alert and oriented x2 and would want to return back. Patient denies suicidal or homicidal ideation. Patient denies visual/auditory hallucinations. Patient will follow up with psychiatrist Dr. Pete at [facility] and will monitor and provide her psychotropic medications. Patient was provided referrals to the following substance abuse programs for substance abuse (alcohol): [facility] ([phone]); [facility] [address] [place] [address] ([phone]); [facility] [id number] [place] [address] ([phone]); [facility] ([phone]); [facility] ([phone]); [facility] ([phone]); [facility] ([phone]). Patient presented with euthymic mood and congruent affect.
[2020-12-05] MEDS: LITHIUM CARBONATE 300 MG CAPSULE PO SCH ×2 (08:14→12:04)
[2020-12-05] MEDS: OLANZAPINE 5 MG TABLET PO SCH (08:14)
--- NOTE | 2020-12-05 13:20 | NUR ---
Patient discharged to [facility]. Patient vital signs stable. No signs of acute distress. Patient denies SI/ HI. Patient denies pain/ discomfort. Discharge instructions given and discharge documents signed by patient. Medication prescription given to patient. Belongings accounted for and belongings list signed by patient. ID armband removed. Patient discharged to [facility] located at located at [address] [place] [address]. Patient will follow up with psychiatrist Dr. Pete at [facility]. Patient given referrals to substance abuse programs for substance abuse (alcohol). Patient wheeled to hospital lobby. Patient left hospital via taxi.
== END 2020-12-05 13:10 | disposition home or self-care (01) | DRG 885 ==
LOC: ER 19:12 → GPS 21:03
PROVIDERS: ADMIT Psychiatry & Neurology Psychosomatic Medicine; ATTEND Hospitalist
DX: F25.0 Schizoaffective disorder, bipolar type (principal); Z68.41 Body mass index [BMI] 40.0-44.9, adult; E44.1 Mild protein-calorie malnutrition; E66.01 Morbid (severe) obesity due to excess calories; F15.10 Other stimulant abuse, uncomplicated; F29 Unspecified psychosis not due to a substance or known physiological condition; Z71.3 Dietary counseling and surveillance; Z20.822 Contact with and (suspected) exposure to COVID-19
CPT/HCPCS: 36415; 70030-TC; 80164; 84443; 85025; 93005; A4663; G0480; J2358

== ENCOUNTER 2023-12-10 14:58 | Inpatient (IN) | payer MEDICARE, OTHER ==
[~2023-12-10] VITALS: Ht 157.5 cm; Wt 112.5 kg
[~2023-12-10 14:58] MED LIST changes: -ACET325T53 PO; -BISA10SU61 RC; +GABA-532 PO; +LITH300C2 PO; -MAGN400O6 PO; -NA P133E RC; +OLAN10TA3 PO; +RISP4TAB70 PO
[2023-12-10 15:52] LABS: BASOPHILS # (AUTO) 0.1 K/UL (0.0-0.2); BASOPHILS % (AUTO) 1.5 % (0.0-2.0); EOSINOPHILS # (AUTO) 0.2 K/uL (0.0-0.7); EOSINOPHILS % (AUTO) 2.9 % (0.0-7.0); HEMATOCRIT 34.2 % (31.2-41.9); HEMOGLOBIN 11.2 g/dL (10.9-14.3); LYMPHOCYTES % (AUTO) 43.6 % (20.5-51.5); MEAN CORPUSCULAR HEMOGLOBIN 31.3 uug (24.7-32.8); MEAN CORPUSCULAR HGB CONC 33 g/dL (32.3-35.6); MEAN CORPUSCULAR VOLUME 95.4 fL (75.5-95.3); MONOCYTES # (AUTO) 0.5 K/uL (0.1-1.30); MONOCYTES % (AUTO) 7.3 % (0.0-11.0); NEUTROPHILS # (AUTO) 3.1 K/uL (1.8-8.9); NEUTROPHILS % (AUTO) 44.7 % (38.5-71.5); PLATELET COUNT (AUTO) 287 K/uL (179-408); RED BLOOD CELL COUNT(AUTO) 3.59 MIL/uL (3.63-4.92); RED CELL DISTRIBUTION WIDTH 13.2 % (12.3-17.7); WHITE BLOOD COUNT (AUTO) 6.9 K/uL (3.8-11.8)
[2023-12-10 15:55] LABS: DIFFERENTIAL COMMENT 1
[2023-12-10 15:59] LABS: CALCIUM 8.9 mg/dL (8.5-10.1); CARBON DIOXIDE 24 mmol/L (21-32); CHLORIDE 110 mmol/L (98-107); CREATININE 0.6 mg/dL (0.6-1.3); GLUCOSE 93 mg/dL (74-106); POTASSIUM 3.6 mmol/L (3.5-5.1); SODIUM SERUM 143 mmol/L (136-145); UREA NITROGEN, BLOOD 7 mg/dL (7-18)
[2023-12-10 16:03] LABS: AMMONIA 29 umol/L (11-32)
[2023-12-10 16:05] LABS: ETHANOL < 3 MG/DL (0-10)
[2023-12-10 16:07] LABS: ALANINE AMINOTRANSFERASE 15 U/L (14-59); ALBUMIN 3.4 g/dL (3.4-5.0); ALKALINE PHOSPHATASE 77 U/L (50-136); ASPARTATE AMINOTRANSFERASE 5 U/L (15-37); BILIRUBIN,DIRECT 0.2 mg/dL (0.0-0.2); BILIRUBIN,TOTAL 0.4 mg/dL (0.2-1.0); TOTAL PROTEIN, SERUM 6.5 g/dL (6.4-8.2)
[2023-12-10 16:13] LABS: ACETAMINOPHEN < 2.0 ug/mL (10-30)
[2023-12-10] MEDS ORDERED: ZIPRASIDONE MESYLATE 20 MG VIAL IM ONE (16:38)
[2023-12-10] MEDS: ZIPRASIDONE MESYLATE 20 MG VIAL IM ONE (16:44)
[2023-12-10] MEDS ORDERED: METF-442 PO (17:25)
[2023-12-10] MEDS ORDERED: BENZ1TAB7 (17:25)
[2023-12-10] MEDS ORDERED: VALP250S3 PO (17:25)
[2023-12-10] MEDS ORDERED: LEVO75TA7 PO (17:25)
[2023-12-10] MEDS ORDERED: LITH600C PO (17:25)
[2023-12-11 02:00] VITALS: BP 107/64; TEMP 97.9; O2SAT 95
[2023-12-11] MEDS ORDERED: MAG HYDROX/AL HYDROX/SIMETH 30 ML LIQUID UDC PO PRN (02:00)
[2023-12-11] MEDS ORDERED: MAGNESIUM HYDROXIDE 30 ML LIQUID UDC PO PRN (02:00)
[2023-12-11] MEDS ORDERED: ACETAMINOPHEN 325 MG TABLET PO PRN (02:00)
[2023-12-11] MEDS: CLONAZEPAM 0.5 MG TABLET PO PRN (02:08)
[2023-12-11] MEDS: BLOOD SUGAR DIAGNOSTIC 1 EACH STRIP VI ONE (02:08)
[2023-12-11] MEDS ORDERED: GLUC1KIT IM (06:52)
[2023-12-11] MEDS ORDERED: MAGN400C PO (06:52)
[2023-12-11] MEDS ORDERED: DEXTROSE 50% 50 ML DISP.SYRIN IV PRN (11:15)
[2023-12-11] MEDS: LITHIUM CARBONATE 300 MG CAPSULE PO SCH (11:44)
[2023-12-11] MEDS: BLOOD SUGAR DIAGNOSTIC 1 EACH STRIP VI SCH (11:52)
[2023-12-11] MEDS: INSULIN REGULAR, HUMAN 300 UNIT/3 ML VIAL SQ PRN (13:35)
[2023-12-11 16:19] VITALS: BP 94/58; TEMP 97.8; O2SAT 97
[2023-12-11] MEDS: METFORMIN HCL 500 MG TABLET PO SCH (17:07)
[2023-12-11 21:07] VITALS: BP 124/35; TEMP 98.2; O2SAT 99
[2023-12-12] MEDS: LEVOTHYROXINE SODIUM 75 MCG TABLET PO SCH (06:07)
[2023-12-12 07:26] LABS: MAGNESIUM 1.8 mg/dL (1.8-2.4)
[2023-12-12 08:11] VITALS: BP 93/59; TEMP 98.2; O2SAT 97
[2023-12-12] MEDS: MAGNESIUM OXIDE 400 MG TABLET PO SCH (09:16)
[2023-12-12] MEDS: LITHIUM CARBONATE 300 MG CAPSULE PO SCH (12:43)
[2023-12-12 16:27] VITALS: BP 109/54; TEMP 98.1; O2SAT 97
[2023-12-12] MEDS: BENZTROPINE MESYLATE 0.5 MG TABLET PO SCH (17:14)
[2023-12-12 20:12] VITALS: BP 101/56; TEMP 98.1; O2SAT 96
[2023-12-12] MEDS: TEMAZEPAM 7.5 MG CAPSULE PO PRN (21:47)
[2023-12-13 09:31] VITALS: BP 116/67; TEMP 98.5; O2SAT 97
[2023-12-13 16:44] VITALS: BP 137/78; TEMP 98.1; O2SAT 97
[2023-12-13 20:01] VITALS: BP 126/68; TEMP 98.2; O2SAT 96
[2023-12-14 08:00] VITALS: BP 121/64; TEMP 97.8; O2SAT 100
[2023-12-14 20:06] VITALS: BP 118/66; TEMP 97.9; O2SAT 96
[2023-12-15 16:11] VITALS: BP 123/63; TEMP 97.9; O2SAT 100
[2023-12-16] MEDS: FAMOTIDINE 20 MG TABLET PO SCH (09:08)
[2023-12-16 12:35] LABS: BASOPHILS # (AUTO) 0.1 K/UL (0.0-0.2); BASOPHILS % (AUTO) 0.7 % (0.0-2.0); EOSINOPHILS # (AUTO) 0.2 K/uL (0.0-0.7); EOSINOPHILS % (AUTO) 2.3 % (0.0-7.0); HEMATOCRIT 39.5 % (31.2-41.9); HEMOGLOBIN 13.2 g/dL (10.9-14.3); LYMPHOCYTES # (AUTO) 2.7 K/uL (0.8-4.8); LYMPHOCYTES % (AUTO) 32.9 % (20.5-51.5); MEAN CORPUSCULAR HEMOGLOBIN 31.4 uug (24.7-32.8); MEAN CORPUSCULAR HGB CONC 33 g/dL (32.3-35.6); MEAN CORPUSCULAR VOLUME 94.2 fL (75.5-95.3); MONOCYTES # (AUTO) 0.6 K/uL (0.1-1.30); MONOCYTES % (AUTO) 6.8 % (0.0-11.0); NEUTROPHILS # (AUTO) 4.7 K/uL (1.8-8.9); NEUTROPHILS % (AUTO) 57.3 % (38.5-71.5); PLATELET COUNT (AUTO) 347 K/uL (179-408); RED BLOOD CELL COUNT(AUTO) 4.19 MIL/uL (3.63-4.92); RED CELL DISTRIBUTION WIDTH 12.9 % (12.3-17.7); WHITE BLOOD COUNT (AUTO) 8.3 K/uL (3.8-11.8)
[2023-12-16 12:42] LABS: ALBUMIN 3.8 g/dL (3.4-5.0); BILIRUBIN,TOTAL 0.5 mg/dL (0.2-1.0); CALCIUM 9.3 mg/dL (8.5-10.1); CREATININE 0.6 mg/dL (0.6-1.3); PHOSPHOROUS 4.6 mg/dL (2.5-4.9); POTASSIUM 4.1 mmol/L (3.5-5.1); TOTAL PROTEIN, SERUM 7.4 g/dL (6.4-8.2)
[2023-12-16 12:50] LABS: THYROID STIMULATING HORMONE 2.965 mIU/mL (0.358-3.740)
[2023-12-16 13:42] LABS: DIFFERENTIAL COMMENT 1
[2023-12-16 16:01] VITALS: BP 99/50; TEMP 97.6; O2SAT 97
[2023-12-16] MEDS: ATORVASTATIN 10 MG TABLET PO SCH (20:40)
[2023-12-17 07:54] VITALS: BP 101/77; TEMP 98.2; O2SAT 98
[2023-12-17 16:12] VITALS: BP 115/78; TEMP 98.2; O2SAT 98
[2023-12-17 20:00] VITALS: BP 103/60; TEMP 97.9; O2SAT 99
[2023-12-18 16:06] VITALS: BP 113/65; TEMP 98.2; O2SAT 97
[2023-12-18 20:00] VITALS: BP 114/61; TEMP 98.5; O2SAT 99
[2023-12-19 08:38] VITALS: BP 106/53; TEMP 98.3; O2SAT 97
[2023-12-19 16:25] VITALS: BP 106/73; TEMP 98.1; O2SAT 97
[2023-12-19 20:00] VITALS: BP 104/60; TEMP 98.2; O2SAT 96
[2023-12-20 07:54] VITALS: BP 111/67; TEMP 98.3; O2SAT 97
== END 2023-12-20 13:15 | DRG 885 ==
LOC: ER 14:58 → GPS 12-11 01:36
PROVIDERS: ADMIT Psychiatry & Neurology Psychosomatic Medicine; ATTEND Internal Medicine
DX: F25.0 Schizoaffective disorder, bipolar type (principal); Z68.42 Body mass index [BMI] 45.0-49.9, adult; D68.59 Other primary thrombophilia; E03.9 Hypothyroidism, unspecified; E11.9 Type 2 diabetes mellitus without complications; Z86.19 Personal history of other infectious and parasitic diseases; E66.01 Morbid (severe) obesity due to excess calories; Z74.09 Other reduced mobility; E78.5 Hyperlipidemia, unspecified; F19.11 Other psychoactive substance abuse, in remission; F10.10 Alcohol abuse, uncomplicated; Z66 Do not resuscitate; Z79.84 Long term (current) use of oral hypoglycemic drugs; Z79.890 Hormone replacement therapy; Z79.899 Other long term (current) drug therapy; Z91.199 Patient's noncompliance with other medical treatment and regimen due to unspecified reason
CPT/HCPCS: 36415; 70030-TC; 70450; 83735; 84100; 84443; 84484; 85025; 85730; 93005; G0480; J1815; J3486

== ENCOUNTER 2024-07-29 19:37 | Inpatient (IN) | payer MEDICARE, MEDICAID ==
[~2024-07-29] VITALS: Ht 157.5 cm; Wt 112.5 kg
[~2024-07-29 19:37] MED LIST changes: -GABA-532 PO; +GLUC1KIT IM; +LEVO75TA7 PO; -LITH300C2 PO; +MAGN400C PO; +METF-442 PO; -OLAN10TA3 PO; -RISP4TAB70 PO
[2024-07-29 20:00] LABS: BASOPHILS # (AUTO) 0.1 K/UL (0.0-0.2); EOSINOPHILS # (AUTO) 0.1 K/uL (0.0-0.7); EOSINOPHILS % (AUTO) 1.7 % (0.0-7.0); HEMATOCRIT 36.6 % (31.2-41.9); HEMOGLOBIN 12.1 g/dL (10.9-14.3); LYMPHOCYTES # (AUTO) 3.3 K/uL (0.8-4.8); LYMPHOCYTES % (AUTO) 41.6 % (20.5-51.5); MEAN CORPUSCULAR HEMOGLOBIN 28.2 uug (24.7-32.8); MEAN CORPUSCULAR HGB CONC 33 g/dL (32.3-35.6); MEAN CORPUSCULAR VOLUME 85.2 fL (75.5-95.3); MONOCYTES # (AUTO) 0.5 K/uL (0.1-1.30); MONOCYTES % (AUTO) 6.8 % (0.0-11.0); NEUTROPHILS # (AUTO) 3.8 K/uL (1.8-8.9); NEUTROPHILS % (AUTO) 48.9 % (38.5-71.5); PLATELET COUNT (AUTO) 346 K/uL (179-408); RED CELL DISTRIBUTION WIDTH 14.9 % (12.3-17.7); WHITE BLOOD COUNT (AUTO) 7.8 K/uL (3.8-11.8)
[2024-07-29] MEDS ORDERED: BENZ2AMP3 IM (20:02)
[2024-07-29 20:10] LABS: DIFFERENTIAL COMMENT 1
[2024-07-29 20:14] LABS: CALCIUM 8.8 mg/dL (8.5-10.1); CARBON DIOXIDE 30 mmol/L (21-32); CHLORIDE 104 mmol/L (98-107); CREATININE 0.6 mg/dL (0.6-1.3); GLUCOSE 137 mg/dL (74-106); POTASSIUM 3.9 mmol/L (3.5-5.1); SODIUM SERUM 143 mmol/L (136-145); UREA NITROGEN, BLOOD 13 mg/dL (7-18)
[2024-07-29 20:28] LABS: ALANINE AMINOTRANSFERASE 21 U/L (14-59); ALBUMIN 3.4 g/dL (3.4-5.0); ALKALINE PHOSPHATASE 94 U/L (50-136); ASPARTATE AMINOTRANSFERASE 15 U/L (15-37); BILIRUBIN,DIRECT 0.1 mg/dL (0.0-0.2); BILIRUBIN,TOTAL 0.3 mg/dL (0.2-1.0); TOTAL PROTEIN, SERUM 7.3 g/dL (6.4-8.2)
[2024-07-29 20:31] LABS: ACETAMINOPHEN < 2.0 ug/mL (10-30)
[2024-07-29 20:40] LABS: ETHANOL < 3 MG/DL (0-10)
[2024-07-29] MEDS ORDERED: MAG HYDROX/AL HYDROX/SIMETH 30 ML LIQUID UDC PO PRN (22:15)
[2024-07-29] MEDS ORDERED: ACETAMINOPHEN 325 MG TABLET PO PRN (22:15)
[2024-07-29] MEDS ORDERED: MAGNESIUM HYDROXIDE 30 ML LIQUID UDC PO PRN (22:15)
[2024-07-29] MEDS ORDERED: LORAZEPAM 1 MG TABLET PO PRN (22:15)
[2024-07-29] MEDS ORDERED: TEMAZEPAM 7.5 MG CAPSULE PO PRN (22:15)
[2024-07-29 22:37] VITALS: BP 132/72; TEMP 97.9; O2SAT 96
[2024-07-30 07:54] VITALS: BP 152/80; TEMP 98; O2SAT 98
[2024-07-30] MEDS: FLUPHENAZINE HCL 5 MG TABLET PO SCH (09:00)
[2024-07-30] MEDS: DIVALPROEX 500 MG TABLET.DR PO SCH (09:00)
[2024-07-30] MEDS: NICOTINE 21 MG/24HR PATCH TD SCH (09:00)
[2024-07-30] MEDS: BENZTROPINE MESYLATE 0.5 MG TABLET PO SCH (09:00)
[2024-07-30] MEDS ORDERED: INSULIN REGULAR, HUMAN 1000 UNIT/10 ML VIAL SQ PRN (11:45)
[2024-07-30] MEDS ORDERED: DEXTROSE 50% 50 ML DISP.SYRIN IV PRN (11:45)
[2024-07-30 15:42] VITALS: BP 129/81; TEMP 98.2; O2SAT 99
[2024-07-30] MEDS: BLOOD SUGAR DIAGNOSTIC 1 EACH STRIP VI SCH (17:33)
[2024-07-30] MEDS: QUETIAPINE FUMARATE 100 MG TABLET PO SCH (20:29)
[2024-07-30 22:08] VITALS: BP 126/53; TEMP 97.9; O2SAT 98
[2024-07-31] MEDS: LEVOTHYROXINE SODIUM 75 MCG TABLET PO SCH (06:27)
[2024-07-31 07:45] VITALS: BP 180/110; TEMP 98.1; O2SAT 95
[2024-07-31 08:10] VITALS: BP 180/110; TEMP 98.1; O2SAT 95
[2024-07-31] MEDS: METFORMIN HCL 500 MG TABLET PO SCH (09:00)
[2024-07-31] MEDS: LORAZEPAM 1 MG TABLET PO PRN (09:05)
[2024-07-31 09:52] VITALS: BP 116/61; TEMP 98.6; O2SAT 97
[2024-07-31] MEDS: BENZTROPINE MESYLATE 0.5 MG TABLET PO SCH (11:10)
[2024-07-31 16:12] VITALS: BP 137/68; TEMP 97.8; O2SAT 96
[2024-07-31 20:00] VITALS: BP 110/65; TEMP 98; O2SAT 95
[2024-08-01 08:10] VITALS: BP 107/87; TEMP 97.8; O2SAT 97
[2024-08-01 16:10] VITALS: BP 113/81; TEMP 98.1; O2SAT 98
[2024-08-01 20:00] VITALS: BP 104/58; TEMP 98; O2SAT 99
[2024-08-01] MEDS: TEMAZEPAM 7.5 MG CAPSULE PO PRN (23:00)
[2024-08-02 08:07] VITALS: BP 97/66; TEMP 98; O2SAT 98
[2024-08-02 16:00] VITALS: BP 107/82; TEMP 98; O2SAT 98
[2024-08-02] MEDS: FLUPHENAZINE HCL 5 MG TABLET PO SCH (17:51)
[2024-08-02] MEDS: BENZTROPINE MESYLATE 1 MG TABLET PO SCH (17:52)
[2024-08-02 20:00] VITALS: BP 119/68; TEMP 98.1; O2SAT 98
[2024-08-03 09:22] VITALS: BP 100/54; TEMP 98.2; O2SAT 99
[2024-08-03 15:30] VITALS: BP 118/64; TEMP 98; O2SAT 99
[2024-08-03 20:00] VITALS: BP 121/67; TEMP 97.8; O2SAT 96
[2024-08-04 08:14] VITALS: BP 92/56; TEMP 97.5; O2SAT 98
[2024-08-04 16:14] VITALS: BP 124/77; TEMP 98; O2SAT 100
[2024-08-04] MEDS: QUETIAPINE FUMARATE 100 MG TABLET PO SCH (20:49)
[2024-08-05 11:33] VITALS: BP 108/42; TEMP 98; O2SAT 95
[2024-08-05] MEDS: QUETIAPINE FUMARATE 25 MG TABLET PO SCH (12:28)
[2024-08-05 16:35] VITALS: BP 100/61; TEMP 98; O2SAT 96
[2024-08-05 20:37] VITALS: BP 99/58; TEMP 97.6; O2SAT 97
[2024-08-06 08:21] VITALS: BP 126/70; TEMP 98.2; O2SAT 96
[2024-08-06 15:37] VITALS: BP 111/62; TEMP 97.9; O2SAT 96
[2024-08-06 20:24] VITALS: BP 123/63; TEMP 97.2; O2SAT 97
[2024-08-07 08:12] VITALS: BP 152/80; TEMP 98.3; O2SAT 98
[2024-08-07 16:14] VITALS: BP 122/78; TEMP 98.3; O2SAT 100
[2024-08-07] MEDS: BENZTROPINE MESYLATE 1 MG TABLET PO SCH (17:35)
[2024-08-07] MEDS: FLUPHENAZINE HCL 5 MG TABLET PO SCH (17:35)
[2024-08-07 20:00] VITALS: BP 139/56; TEMP 97.8; O2SAT 96
[2024-08-08] MEDS ORDERED: QUETIAPINE FUMARATE 25 MG TABLET PO SCH (12:00)
[2024-08-08] MEDS: QUETIAPINE FUMARATE 25 MG TABLET PO SCH (12:53)
[2024-08-08] MEDS: DIVALPROEX 500 MG TABLET.DR PO SCH (12:53)
[2024-08-08] MEDS: FLUPHENAZINE HCL 5 MG TABLET PO SCH (16:36)
[2024-08-09 15:25] VITALS: BP 100/82; TEMP 97.6; O2SAT 96
[2024-08-09 20:00] VITALS: BP 94/50; TEMP 97.3; O2SAT 97
[2024-08-10 08:00] VITALS: BP 131/62; TEMP 97.2; O2SAT 97
[2024-08-10] MEDS: VALPROIC ACID 250 MG/5 ML LIQUID UDC PO SCH ×2 (13:34→20:20)
[2024-08-10 16:00] VITALS: BP 99/55; TEMP 97.8; O2SAT 97
[2024-08-10 21:16] VITALS: BP 89/56; TEMP 97.4; O2SAT 97
[2024-08-10 22:06] VITALS: BP 119/68
[2024-08-11 08:08] VITALS: BP 122/61; TEMP 98.3; O2SAT 100
== END 2024-08-11 16:15 | DRG 885 ==
LOC: ER 19:37 → GPS 21:41
PROVIDERS: ADMIT Psychiatry & Neurology Psychosomatic Medicine; ATTEND Internal Medicine
DX: F25.0 Schizoaffective disorder, bipolar type (principal); Z68.42 Body mass index [BMI] 45.0-49.9, adult; Z91.51 Personal history of suicidal behavior; Z88.8 Allergy status to other drugs, medicaments and biological substances; F17.210 Nicotine dependence, cigarettes, uncomplicated; E66.01 Morbid (severe) obesity due to excess calories; Z71.3 Dietary counseling and surveillance; E11.9 Type 2 diabetes mellitus without complications; E03.9 Hypothyroidism, unspecified; Z79.84 Long term (current) use of oral hypoglycemic drugs; I10 Essential (primary) hypertension; F41.9 Anxiety disorder, unspecified; G47.30 Sleep apnea, unspecified; Z60.8 Other problems related to social environment
CPT/HCPCS: 36415; 80164; 85025; G0480; J1815